=== PATIENT | female | born 1950 | race Asian ===

== ENCOUNTER 2017-11-09 15:21 | Emergency (ER) | payer MEDICARE, OTHER ==
[~2017-11-09] VITALS: Ht 157.5 cm; Wt 49.0 kg
[2017-11-09 15:23] VITALS: BP 120/70
--- NOTE | 2017-11-09 15:39 | Emergency Room Report ---
History of Present Illness General Chief Complaint: Multiple Trauma/Fall Source: Patient, Medical Record Present Illness HPI Patient is a 67-year-old female brought in by EMS after how repeated falls. The patient was noted to have previous laceration to the left side of her face. This occurred yesterday. History markedly limited by patient's poor cooperation. Allergies: Coded Allergies: No Known Allergies (Unverified , 11/09/17) Patient History Past Medical History: see triage record Now: No Reviewed Nursing Documentation: PMH: Agreed, PSxH: Agreed Nursing Documentation-PMH Hx COPD: Yes Hx Diabetes: Yes History Of Psychiatric Problem: Yes - bi-polar,schizophrenia Review of Systems All Other Systems: limited - by poor cooperation Physical Exam Vital Signs Date Time Temp Pulse Resp B/P (MAP) Pulse Ox O2 Delivery O2 Flow Rate FiO2 11/09/17 15:23 76 18 120/70 98 Room Air Sp02 EP Interpretation: reviewed, normal General Appearance: normal inspection, well appearing, no apparent distress, alert, non-toxic Head: atraumatic ENT: normal ENT inspection, hearing grossly normal, normal voice Neck: normal inspection, full range of motion, supple, no bony tend Respiratory: normal inspection, lungs clear, normal breath sounds, no respiratory distress, no retraction, no wheezing Cardiovascular #1: regular rate, rhythm, no edema Gastrointestinal: normal inspection, normal bowel sounds, non tender, soft, no guarding, no hernia Genitourinary: no CVA tenderness Musculoskeletal: normal inspection, back normal, normal range of motion Neurologic: normal inspection, alert, speech normal Psychiatric: normal inspection, mood/affect normal, anxious Skin: normal color, no rash, other - small laceration to left eyebrow less then 1 cm Medical Decision Making Diagnostic Impression: Primary Impression: Fall Additional Impression: Scalp abrasion, non-infected ER Course Patient presented for fall. Differential diagnosis included was not limited to neck fracture, CVA, close head injury, syncopal episode, basilar ischemia. CT the head read by radiologist showed no evidence of acute fracture or CVA. The patient was sent back to her [facility]. The patient was return if she began having increased altered mental status persistent vomiting or other concerns Labs Test 11/09/17 16:35 White Blood Count 6.5 K/UL (4.8-10.8) Red Blood Count 4.62 M/UL (4.20-5.40) Hemoglobin 13.3 G/DL (12.0-16.0) Hematocrit 42.7 % (37.0-47.0) Mean Corpuscular Volume 92 FL (80-99) Mean Corpuscular Hemoglobin 28.8 PG (27.0-31.0) Mean Corpuscular Hemoglobin Concent 31.3 G/DL (32.0-36.0) Red Cell Distribution Width 12.2 % (11.6-14.8) Platelet Count 300 K/UL (150-450) Mean Platelet Volume 4.9 FL (6.5-10.1) Neutrophils (%) (Auto) 52.5 % (45.0-75.0) Lymphocytes (%) (Auto) 38.5 % (20.0-45.0) Monocytes (%) (Auto) 7.3 % (1.0-10.0) Eosinophils (%) (Auto) 1.0 % (0.0-3.0) Basophils (%) (Auto) 0.7 % (0.0-2.0) Sodium Level 141 MMOL/L (136-145) Potassium Level 3.5 MMOL/L (3.5-5.1) Chloride Level 103 MMOL/L (98-107) Carbon Dioxide Level 31 MMOL/L (21-32) Anion Gap 7 mmol/L (5-15) Blood Urea Nitrogen 12 mg/dL (7-18) Creatinine 0.6 MG/DL (0.55-1.30) Estimat Glomerular Filtration Rate > 60 mL/min (>60) Glucose Level 113 MG/DL (74-106) Calcium Level 9.2 MG/DL (8.5-10.1) Total Bilirubin 0.3 MG/DL (0.2-1.0) Aspartate Amino Transf (AST/SGOT) 14 U/L (15-37) Alanine Aminotransferase (ALT/SGPT) 15 U/L (12-78) Alkaline Phosphatase 96 U/L (46-116) Total Protein 8.0 G/DL (6.4-8.2) Albumin 3.7 G/DL (3.4-5.0) Globulin 4.3 g/dL Albumin/Globulin Ratio 0.9 (1.0-2.7) EKG Diagnostic Results Rate: normal - 76 Rhythm: NSR ST Segments: no acute changes Last Vital Signs Date Time Temp Pulse Resp B/P (MAP) Pulse Ox O2 Delivery O2 Flow Rate FiO2 11/09/17 15:23 76 18 120/70 98 Room Air Status: improved Disposition: HOME, SELF-CARE Condition: Stable Rogelio Fortune Nov 09, 2017 15:39
--- NOTE | 2017-11-09 16:35 | Diagnostic Imaging Report ---
Indications: Head and neck trauma Technique: Spiral acquisitions obtained through the brain. Angled axial and coronal 5 x 5 mm slices were reconstructed. Total dose length product 1439 mGycm. CTDI vol(s) 70 mGy. Dose reduction achieved using automated exposure control Comparison: None. Findings: There is age-related enlargement of the ventricles and extra-axial CSF spaces. Normal ball-white differentiation. No acute intracranial hemorrhage or edema. No mass effect or midline shift. The mastoids are clear. The calvarium is intact Impression: Age-related changes. Negative for acute intracranial bleed or mass effect The CT scanner at [facility] is accredited by the [employer] and the scans are performed using protocols designed to limit radiation exposure to as low as reasonably achievable to attain images of sufficient resolution adequate for diagnostic evaluation.
[2017-11-09 16:45] LABS: BASOPHILS % (AUTO) 0.7 % (0.0-2.0); LYMPHOCYTES % (AUTO) 38.5 % (20.0-45.0); MEAN CORPUSCULAR HEMOGLOBIN 28.8 PG (27.0-31.0); MEAN CORPUSCULAR HGB CONC 31.3 G/DL (32.0-36.0); MEAN CORPUSCULAR VOLUME 92 FL (80-99); MEAN PLATELET VOLUME 4.9 FL (6.5-10.1); MONOCYTES % (AUTO) 7.3 % (1.0-10.0); NEUTROPHILS % (AUTO) 52.5 % (45.0-75.0); PLATELET COUNT 300 K/UL (150-450); RED BLOOD COUNT 4.62 M/UL (4.20-5.40); RED CELL DISTRIBUTION WIDTH 12.2 % (11.6-14.8); WHITE BLOOD COUNT 6.5 K/UL (4.8-10.8)
--- NOTE | 2017-11-09 16:45 | Diagnostic Imaging Report ---
Indication: Head and neck trauma Technique: Spiral acquisitions obtained through the cervical spine. No IV contrast utilized. Multiplanar reconstructions were generated. Total dose length product 250 mGycm. CTDIvol(s) 10 mGy. Dose reduction achieved using automated exposure control Comparison: none Findings: There is a slight degree of motion artifact at the C1-C2 level, which somewhat limits evaluation. The atlantodental distance is slightly increased, measuring 3.5 mm, normal less than 3. No associated odontoid fracture. There is slight rotation of C3 1 on C2, but no ila lateral mass subluxation demonstrated. No significant soft tissue swelling. This results in very slight anterior displacement of the posterior arch which very slightly distorts the spinal canal but does not significantly narrow it. No significant widening of the interspinous distance No other evidence of acute fracture or dislocation. No prevertebral soft tissue swelling. The vertebral body heights are preserved. The disc spaces are preserved. At C5-6, there is mild central posterior disc protrusion which results in borderline narrowing of the spinal canal. There is mild bilateral neural foraminal stenosis. At C6-7, there is mild left neural foraminal stenosis. At the remaining levels, no significant disc bulge or protrusion, spinal stenosis, or neural foraminal stenosis. The included extra spinal soft tissues are unremarkable. Impression: Slight increase in the atlantodental distance, just over 3 mm. Main differential possibilities are chronic ligamentous laxity from inflammatory arthritis or other conditions, versus traumatic atlantoaxial subluxation. Given the absence of associated findings, favor the former, but the latter is not completely excluded. Degenerative changes, as described Findings discussed by phone with Dr. Fortune in the emergency room at the time of interpretation The CT scanner at [facility] is accredited by the [employer] and the scans are performed using protocols designed to limit radiation exposure to as low as reasonably achievable to attain images of sufficient resolution adequate for diagnostic evaluation.
[2017-11-09 17:28] VITALS: BP 111/98
[2017-11-09 17:29] LABS: ANION GAP 7 mmol/L (5-15); CALCIUM 9.2 MG/DL (8.5-10.1); CARBON DIOXIDE 31 MMOL/L (21-32); CHLORIDE 103 MMOL/L (98-107); CREATININE 0.6 MG/DL (0.55-1.30); GLOMERULAR FILTRATION RATE > 60 mL/min (>60); POTASSIUM 3.5 MMOL/L (3.5-5.1); SODIUM 141 MMOL/L (136-145)
[2017-11-09 17:36] LABS: ALANINE AMINOTRANSFERASE 15 U/L (12-78); ALBUMIN/GLOBULIN RATIO 0.9 (1.0-2.7); ASPARTATE AMINO TRANSFERASE 14 U/L (15-37)
[2017-11-09 19:37] VITALS: BP 119/58
--- NOTE | 2017-11-11 11:00 | Cardiology Report ---
APPROVED REPORT EKG Measurement Heart [id number] Normal sinus rhythm Normal ECG
== END 2017-11-09 19:50 | disposition home or self-care (01) ==
LOC: EDBD 15:21 → EMR 15:55
DX: S01.112A Laceration without foreign body of left eyelid and periocular area, initial encounter (principal); S00.01XA Abrasion of scalp, initial encounter; W19.XXXA Unspecified fall, initial encounter; Z91.81 History of falling; Y92.9 Unspecified place or not applicable; E11.9 Type 2 diabetes mellitus without complications; J44.9 Chronic obstructive pulmonary disease, unspecified; M50.222 Other cervical disc displacement at C5-C6 level; F31.9 Bipolar disorder, unspecified; F20.9 Schizophrenia, unspecified
CPT/HCPCS: 36415; 70450; 72125; 80053; 85025; 93005; 99284